=== PATIENT | male | born 1985 | race Caucasian/White ===

== ENCOUNTER 2020-10-19 10:40 | Emergency (ER) | payer SELFPAY ==
--- NOTE | 2020-10-19 10:47 | ED.GENADULT ---
HPI - General Adult General Chief complaint: Dental/Oral Stated complaint: abscess Time Seen by Provider: 10/19/20 10:47 Source: patient Mode of arrival: ambulatory Limitations: no limitations History of Present Illness HPI narrative: 35-year-old male patient presents to the [facility] with complaints of right lower dental pain for the past 2 days. Patient states he has been taking Tylenol ibuprofen for the pain which has not helped. Patient states he does have history of dental infections before in the past and does have known bad teeth. Related Data Allergies Allergy/AdvReac Type Severity Reaction Status Date / Time codeine Allergy Intermediate HEADACHES Verified 10/19/20 10:58 Review of Systems Review of Systems: Narrative: CONSTITUTIONAL: Denies fever, chills, or sweats. EYES: Denies visual changes, redness, or discharge. ENT: Denies rhinorrhea, congestion, sore throat, or otalgia. Positive right lower dental pain x2 days CARDIOVASCULAR: Denies chest pain, palpitations, or edema. RESPIRATORY: Denies cough or dyspnea. GASTROINTESTINAL: Denies abdominal pain, nausea, vomiting, or diarrhea. GENITOURINARY: Denies dysuria or hematuria. SKIN: Denies rash or itching. MUSCULOSKELETAL: Denies back pain, joint pain, or myalgia. NEUROLOGIC: Denies headache, numbness, or weakness. PSYCHIATRIC: Denies anxiety or depression. [facility] Past Medical History Medical History (Updated 10/19/20 @ 11:39 by DESTINEE Oscar) No significant past medical history Comments At the time of my signature I agree with nursing past medical history, surgical, social, and family history. There is no relevant family history pertinent to the presenting complaint. Exam Narrative: Exam Narrative: GENERAL: Well-appearing, well-nourished, and in no acute distress. HEAD: Normocephalic, atraumatic. EYES: PERRLA and EOMI. ENT: Nares clear, no rhinorrhea or epistaxis. Mucous membranes moist. Patient has slight swelling to the jaw area noted. Patient does have multiple dental caries throughout the oral cavity with a broken tooth and dental caries noted to the right lower molars with surrounding erythema swelling and tenderness. No active drainage noted at this time. NECK: Supple. No lymphadenopathy CHEST: Clear to auscultation. No respiratory distress. HEART: Regular rate and rhythm. No murmur heard. Normal peripheral pulses. ABDOMEN: Soft, nontender, nondistended, normal active bowel sounds. EXTREMITIES: Normal range of motion. No edema. SKIN: Warm, dry, no rash. NEURO: No focal deficits. Alert and oriented x3. Course Vital Signs Vital signs: Vital Signs Temperature 36.7 C 10/19/20 10:56 Pulse Rate 85 10/19/20 10:56 Respiratory Rate 20 10/19/20 10:56 Blood Pressure 146/89 H 10/19/20 10:56 Pulse Oximetry 100 10/19/20 10:56 Temperature 36.7 C 10/19/20 10:56 Pulse Rate 85 10/19/20 10:56 Respiratory Rate 20 10/19/20 10:56 Blood Pressure 146/89 H 10/19/20 10:56 Pulse Oximetry 100 10/19/20 10:56 Vital signs reviewed The patient has been informed that they may have pre-hypertension or Hypertension based on a BP reading in the department. I recommend that the patient call the primary care provider listed on their discharge instructions or a physician of their choice this week to arrange follow up for further evaluation of possible pre-hypertension or Hypertension Medical Decision Making Differential Diagnosis Differential Diagnosis: Differential diagnosis: Abscess, cellulitis, hidradenitis, laceration, puncture wound. Discussed with patient it does appear that he most likely has an infected dental carry or possibly an abscess noted to the right lower oral cavity causing the pain. Discussed with patient we will go ahead and put him on antibiotics today along with some tramadol to help with the pain. Discussed with patient that we will give him a dental referral to call and follow-up with the dentist because most teeth
[2020-10-19 10:56] VITALS: BP 146/89; PULSE 85; RESP 20; TEMP 36.7; O2SAT 100
== END 2020-10-19 11:40 | disposition home or self-care (01) ==
PROVIDERS: Emergency Provider Nurse Practitioner Family
DX: K08.89 Other specified disorders of teeth and supporting structures (principal); K02.9 Dental caries, unspecified; K04.7 Periapical abscess without sinus
CPT/HCPCS: 99213; G0463